=== PATIENT | male | born 1965 | race Two or more races ===

== ENCOUNTER 2019-10-06 13:49 | Emergency (ER) | payer SELFPAY ==
[~2019-10-06] VITALS: Ht 177.8 cm; Wt 83.0 kg
--- NOTE | 2019-10-06 13:52 | NUR ---
COUGH, CONGESTION, AND FEVER X 2 WEEKS, PT TO BED 5, PLACED ON MONITOR, AAOX4, VSS, PENDING MD JIMENEZ
[2019-10-06] MEDS ORDERED: AZITHROMYCIN 500 MG in IV D5W 250 ML IV ONE (16:00)
[2019-10-06] MEDS ORDERED: IV NS 0.9% 1,000 ML BAG IV ONE (16:00)
[2019-10-06] MEDS ORDERED: CEFTRIAXONE 1GM BAG (ER ONLY) 1 GM/50 ML PIGGYBACK IV ONE (16:00)
[2019-10-06] MEDS ORDERED: CEFTRIAXONE 1 G in IV D5W 50 ML IV ONE (16:30)
--- NOTE | 2019-10-06 16:34 | NUR ---
PAGED [facility].
[2019-10-06 16:54] LABS: BASOPHILS % (AUTO) 0.2 % (0.0-2.0); HEMATOCRIT 40 % (39-51); LYMPHOCYTES # (AUTO) 0.3 /CMM (0.8-4.8); LYMPHOCYTES % (AUTO) 7.1 % (20.0-44.0); MEAN CORPUSCULAR HGB CONC 35 g/dl (31.0-36.0); MEAN CORPUSCULAR VOLUME 84 fL (80-96); MONOCYTES # (AUTO) 0.3 /CMM (0.1-1.30); NEUTROPHILS # (AUTO) 3.9 /CMM (1.8-8.9); NEUTROPHILS % (AUTO) 85.7 % (43.0-81.0); PLATELET COUNT (AUTO) 229 /CMM (150-450); WHITE BLOOD COUNT (AUTO) 4.5 K/uL (4.3-11.0)
--- NOTE | 2019-10-06 17:00 | NUR ---
PT IS PUI-- COVID SWAB, FLU, VIRAL PANEL SENT.
[2019-10-06 17:03] LABS: CALCIUM, SERUM 8.4 mg/dL (8.5-10.1); CARBON DIOXIDE 24 mmol/L (21-32); CHLORIDE 90 mmol/L (98-107); CREATININE 1.1 mg/dL (0.6-1.3); GLUCOSE 108 mg/dL (74-106); POTASSIUM 4.1 mmol/L (3.5-5.1); SODIUM SERUM 123 mmol/L (136-145); UREA NITROGEN, BLOOD 17 mg/dL (7-18)
[2019-10-06 17:09] LABS: ALANINE AMINOTRANSFERASE 112 U/L (12-78); ALBUMIN 3.6 g/dL (3.4-5.0); ALKALINE PHOSPHATASE 108 U/L (46-116); ASPARTATE AMINOTRANSFERASE 90 U/L (15-37); BILIRUBIN,DIRECT 0.2 mg/dL (0.0-0.2); BILIRUBIN,TOTAL 0.8 mg/dL (0.2-1.0); TOTAL PROTEIN, SERUM 7.3 g/dL (6.4-8.2)
[2019-10-06] MEDS ORDERED: ACETAMINOPHEN ES 500 MG TABLET ONE (18:21)
[2019-10-06] MEDS ORDERED: ACETAMINOPHEN 325 MG TABLET PO ONE (18:30)
[2019-10-06] MEDS ORDERED: ACETAMINOPHEN 325 MG TABLET PO PRN (21:00)
[2019-10-06] MEDS ORDERED: AZITHROMYCIN 500 MG in IV D5W 250 ML IV SCH (21:00)
[2019-10-06] MEDS ORDERED: ONDANSETRON HCL/PF 4 MG/2 ML VIAL IVP PRN (21:00)
[2019-10-06] MEDS ORDERED: ALBUTEROL SULFATE 8 GM HFA.AER.AD IH PRN (21:00)
--- NOTE | 2019-10-06 21:00 | NUR ---
PT DOES NOT WISH TO STAY FOR INPATIENT DR SIMENTAL AWARE
--- NOTE | 2019-10-06 21:20 | NUR ---
DR SIMENTAL ON THE PHONE WITH PATIENT ABOUT GOING AMA. EXPLAINED RISKS AND BENEFITS, PT STILL WANTS TO GO HOME, STATES HE "FEELS" MUCH BETTER.
[2019-10-06 21:30] VITALS: BP 152/90
[2019-10-06] MEDS ORDERED: IV NS 0.9% 1,000 ML IV PRN (21:30)
[2019-10-06] MEDS ORDERED: HYDROXYCHLOROQUINE 200 MG TABLET PO SCH (21:30)
--- NOTE | 2019-10-06 21:34 | NUR ---
Patient does not wish to proceed with medical care recommended by Dr. Mcallister. Patient given information related to possible complications, up to and including , which could occur as a result of leaving the hospital at this time. Patient verbalizes understanding of risks involved due to leaving against medical advice. Patient has signed AMA form.
== END 2019-10-06 21:43 | disposition left against medical advice (07) ==
LOC: ER 13:50
DX: B97.29 Other coronavirus as the cause of diseases classified elsewhere (principal); J18.1 Lobar pneumonia, unspecified organism; E87.1 Hypo-osmolality and hyponatremia; I10 Essential (primary) hypertension; R19.7 Diarrhea, unspecified; R74.0 Nonspecific elevation of levels of transaminase and lactic acid dehydrogenase [LDH]
CPT/HCPCS: 0099U; 36415; 71045; 80048; 80076; 83605; 84145; 84484; 85025; 85730; 87040 ×2; 87081; 87804 ×2; 93005; 96361; 96365; 96368; 99285; J0456; J0696; J7060 ×2